=== PATIENT | female | born 1985 | race Two or more races ===

== ENCOUNTER 2016-12-17 13:06 | Emergency (ER) | payer MEDICAID ==
[2016-12-17] MEDS ORDERED: OXYCODONE-ACETAMINOPHEN 5-325 MG TABLET PO ONE (13:59)
[2016-12-17] MEDS ORDERED: DIPH/PERTUSS(ACELL)/TETANUS VAC/PF 0.5 ML SYR (>=10YO) IM ONE (13:59)
--- NOTE | 2016-12-17 14:00 | ER Document Report ---
ED Medical Screen (RME) - General Chief Complaint: Laceration Stated Complaint: LACERATION ON RIGHT HAND Time Seen by Provider: 12/17/16 13:59 - HPI Patient complains to provider of: Right fifth finger laceration Onset: Just prior to arrival Onset/Duration: Sudden Quality of pain: Achy Severity: Moderate Pain Level: 3 Associated Symptoms: None Exacerbated by: Movement Relieved by: Denies Similar symptoms previously: No Recently seen / treated by doctor: No Notes: 12/17/16 13:59 Patient is a 31-year-old female who presents to the emergency room complaining of laceration to the right fifth finger that occurred just prior to arrival, states she cut it on a broken piece of mirror, last tetanus shot is unknown, she denies any numbness or tingling to the distal extremity, the laceration is on the palmar surface over the PIP - Related Data Allergies/Adverse Reactions: No Known Allergies Allergy (Unverified 12/17/16 13:20) Past Medical History Renal/ Medical History: Denies: Hx Peritoneal Dialysis Surgical Hx: Negative Physical Exam - Vital signs Vitals: Temp Pulse Resp BP Pulse Ox 98.6 F 78 16 131/79 H 96 12/17/16 13:20 12/17/16 13:20 12/17/16 13:20 12/17/16 13:20 12/17/16 13:20 Course - Vital Signs Vital signs: Temp Pulse Resp BP Pulse Ox 98.6 F 78 16 131/79 H 96 12/17/16 13:20 12/17/16 13:20 12/17/16 13:20 12/17/16 13:20 12/17/16 13:20
[2016-12-17] MEDS ORDERED: LIDOCAINE 1% INJ (10 MG/ML) 10 ML MDV INJ ONE (14:37)
[2016-12-17] MEDS ORDERED: LIDOCAINE 1% INJ-PF (10 MG/ML) 30 ML SDV ONE (14:44)
--- NOTE | 2016-12-17 15:16 | RADIOLOGY REPORT (SQ) ---
EXAM DESCRIPTION: FINGER RIGHT COMPLETED DATE/TIME: 12/17/2016 2:39 pm REASON FOR STUDY: LACERATION RT5 MID COMPARISON: None. NUMBER OF VIEWS: Three views. TECHNIQUE: AP, lateral, and oblique images acquired of the right 5th finger LIMITATIONS: None. FINDINGS: MINERALIZATION: Normal. BONES: There is a large bandage on the 5th finger. No osseous abnormality is seen. SOFT TISSUES: No soft tissue swelling. No foreign body. OTHER: No other significant finding. IMPRESSION: NO RADIOGRAPHIC EVIDENCE OF ACUTE INJURY. COMMENT: SITE OF TRAUMA/COMPLAINT MARKED/STAMP COMPLETED: Yes TECHNICAL DOCUMENTATION: JOB ID: [id number] [employer]- All Rights Reserved
--- NOTE | 2016-12-17 16:27 | ER Document Report ---
ED General - General Chief Complaint: Laceration Stated Complaint: LACERATION ON RIGHT HAND Time Seen by Provider: 12/17/16 13:59 Information source: Patient, Relative - HPI Onset: Just prior to arrival Onset/Duration: Sudden - This is a 31-year-old female who presented to the emergency room today stating that the bathroom mirror went to fall on her and she put her hands up to catch at the mirror broke lacerating her volar aspect of her fifth metacarpal at the PIP - Related Data Allergies/Adverse Reactions: No Known Allergies Allergy (Unverified 12/17/16 13:20) Past Medical History - General Information source: Patient - Social History Smoking Status: Never Smoker Cigarette use (# per day): No Chew tobacco use (# tins/day): No Smoking Education Provided: No Drug Abuse: None Family History: None Patient has suicidal ideation: No Patient has homicidal ideation: No Renal/ Medical History: Denies: Hx Peritoneal Dialysis Surgical Hx: Negative Review of Systems - Review of Systems Constitutional: No symptoms reported EENT: No symptoms reported Cardiovascular: No symptoms reported Respiratory: No symptoms reported Gastrointestinal: No symptoms reported Genitourinary: No symptoms reported Female Genitourinary: No symptoms reported Musculoskeletal: No symptoms reported Skin: No symptoms reported Hematologic/Lymphatic: No symptoms reported Neurological/Psychological: No symptoms reported Physical Exam - Vital signs Vitals: Temp Pulse Resp BP Pulse Ox 98.6 F 78 16 131/79 H 96 12/17/16 13:20 12/17/16 13:20 12/17/16 13:20 12/17/16 13:20 12/17/16 13:20 Interpretation: Normal - General General appearance: Appears well, Alert - HEENT Head: Normocephalic, Atraumatic Eyes: Normal Pupils: PERRL - Respiratory Respiratory status: No respiratory distress Chest status: Nontender Breath sounds: Normal Chest palpation: Normal - Cardiovascular Rhythm: Regular Heart sounds: Normal auscultation Murmur: No - Abdominal Inspection: Normal Distension: No distension Bowel sounds: Normal Tenderness: Nontender Organomegaly: No organomegaly - Back Back: Normal, Nontender - Extremities General upper extremity: Normal inspection, Nontender, Normal color, Normal ROM , Normal temperature General lower extremity: Normal inspection, Nontender, Normal color, Normal ROM , Normal temperature, Normal weight bearing. No: Ashtyn's sign Hand: Other - Fifth metatarsal has a laceration on the volar surface of the PIP. Neurovascularly intact distal to the affected area. Rapid capillary refill. - Neurological Neuro grossly intact: Yes Cognition: Normal Orientation: AAOx4 Jayce Coma Scale Eye Opening: Spontaneous Cropsey Coma Scale Verbal: Oriented Cropsey Coma Scale Motor: Obeys Commands Cropsey Coma Scale Total: 15 Speech: Normal Motor strength normal: LUE, RUE, LLE, RLE Sensory: Normal - Psychological Associated symptoms: Normal affect, Normal mood - Skin Skin Temperature: Warm Skin Moisture: Dry Skin Color: Normal Course - Vital Signs Vital signs: Temp Pulse Resp BP Pulse Ox 98.6 F 78 16 131/79 H 96 12/17/16 13:20 12/17/16 13:20 12/17/16 13:20 12/17/16 13:20 12/17/16 13:20 Procedures - Laceration/Wound Repair Right Proximal Finger Wound length (cm): 3 Wound's Depth, Shape: Superficial Anesthetic type: 1% Lidocaine Wound explored: Clean Wound Debrided: Moderate Wound Repaired With: Sutures Suture Size/Type: 4:0, Nylon Number of Sutures: 2 Layer Closure?: No Post-procedure wound care: Other - Patient tolerated the 2 sutures poorly felt as though she still had sensation after digital block with a total of 6 cc of 1 % lidocaine to that extremity. The 2 sutures were placed Steri-Strips were applied over the wound. At the patient's request the patient did ask me to stop. Neurovascularly intact after the procedure being the patient had a long conversation regarding the potential for infection and the wounds have a very distinguished scar at that location. Discharge - Discharge Condition: Good Disposition: HOME, SELF-CARE Instructions: Laceration Care (OM), Soap Cleansing (OM), Tetanus Immunization Given ([facility]) Additional Instructions: Laceration Care Your laceration has been sutured to keep the skin edges aligned during healing. The time of suture removal depends on the nature and location of your cut. Please follow the care instructions the doctor has outlined for you and return for further care, according to the schedule you've been given. Keep the wound and dressing clean. Unless you were told otherwise, you may shower daily, blotting the wound dry with a clean, unused towel. At other times, If the dressing gets wet or blood soaked, remove it and blot the wound dry, then reapply a new dressing. Unless you were instructed otherwise, dressings should be changed at least daily. If any signs of infection occur (swelling, redness, increasing tenderness, red streaks, tender lumps in the armpit or groin above the laceration, or fever) , see the doctor immediately. Prescriptions: Tramadol HCl [Ultram 50 mg Tablet] 50 mg PO Q4HP PRN #60 tab PRN Reason:
[2016-12-17 17:00] VITALS: BP 123/77
== END 2016-12-17 17:04 | disposition home or self-care (01) ==
LOC: ER 13:06
PROC: 0HQFXZZ Repair Right Hand Skin, External Approach (ICD-10-PCS; principal; 2016-12-17)
DX: S61.411A Laceration without foreign body of right hand, initial encounter (principal); W19.XXXA Unspecified fall, initial encounter
CPT/HCPCS: 99283; 90471; 73140; 90715; 12002; J3490

== ENCOUNTER 2017-05-11 05:20 | Day surgery (SDC) | payer MEDICAID ==
[2017-05-02 10:50] LABS: HEMATOCRIT 38.4 % (36.0-47.0); HEMOGLOBIN 13.1 g/dL (12.0-15.5); HGB HCT DIFFERENCE 0.9; MEAN CORPUSCULAR HEMOGLOBIN 31.3 pg (27.0-33.4); MEAN CORPUSCULAR VOLUME 92 fl (80-97); RED BLOOD COUNT 4.17 10^6/uL (3.72-5.28); RED CELL DISTRIBUTION WIDTH 12.8 % (11.5-14.0); WHITE BLOOD COUNT 6.3 10^3/uL (4.0-10.5)
[~2017-05-11 05:20] MED LIST: CEFAZOLIN 1 GM/D5W RTU 1 GM/50 ML RTUPB IV PRN; LACTATED RINGERS 1000 ML IV PRN; LIDOCAINE 0.5% INJ-PF (5 MG/ML) 50 ML SDV SUBCUT PRN
[2017-05-11] MEDS ORDERED: FENTANYL CITRATE INJ/PF 100 MCG/2 ML AMPUL ONE (07:08)
[2017-05-11] MEDS ORDERED: MIDAZOLAM 2 MG/2 ML INJ ONE (07:08)
[2017-05-11] MEDS ORDERED: PROPOFOL INJ 200 MG/20 ML VIAL IV ONE (07:09)
[2017-05-11] MEDS ORDERED: LIDOCAINE 1% INJ-PF (10 MG/ML) 30 ML SDV ONE (07:12)
[2017-05-11] MEDS ORDERED: PROMETHAZINE HCL INJ 25 MG/1 ML VIAL IV PRN ×2 (07:41)
[2017-05-11] MEDS ORDERED: OXYCODONE-ACETAMINOPHEN 5-325 MG TABLET PO PRN ×3 (07:41→08:05)
[2017-05-11] MEDS ORDERED: FENTANYL CITRATE INJ/PF 100 MCG/2 ML AMPUL IV PRN ×3 (07:41)
[2017-05-11] MEDS ORDERED: DIPHENHYDRAMINE HCL 50 MG/ML VIAL IV PRN (07:41)
[2017-05-11] MEDS ORDERED: MEPERIDINE HCL/PF INJ 25 MG/1 ML DISP.SYRIN IV PRN (07:41)
[2017-05-11] MEDS ORDERED: MORPHINE SULFATE 10 MG/ML INJ IV PRN (07:41)
--- NOTE | 2017-05-11 08:04 | PDOC DISCHARGE SUMMARY ---
Discharge Summary (SDC) - Discharge Final Diagnosis: Left foreign body Date of Surgery: 05/11/17 Discharge Date: 05/11/17 Condition: Stable Treatment or Instructions: Wound care: - Leave steri strips (paper bandaids) intact until follow up appointment. You may shower and get the area wet in two days. Do not scrub area. Pat dry after shower. If you feel more comfortable, you may cover the area with gauze and tape. - Tylenol or Ibuprofen/Motrin for pain. - Follow up appointment in two weeks with Diane Marcelo PA-C at [facility]. [facility]: [phone] Call clinic sooner with any questions/concerns Referrals: ANKIT HOLCOMB MD [Primary Care Provider] - Discharge Diet: As Tolerated Discharge Activity: Activity As Tolerated Report the Following to Your Physician Immediately: Fever over 101 Degrees, Unusual Bleeding, Redness, Swelling, Warmth, Drainage-Foul Smelling
[2017-05-11] MEDS ORDERED: ONDANSETRON HCL INJ/PF 4 MG/2 ML SDV IV PRN (08:06)
--- NOTE | 2017-05-11 08:07 | Operative Report ---
Operative Report DATE OF SURGERY: 05/11/17 PREOPERATIVE DIAGNOSIS: Retained foreign body consistent with Nexplanon POSTOPERATIVE DIAGNOSIS: Same OPERATION: 1. Focused ultrasound left upper extremity. 2. Ultrasound directed operative removal of left upper extremity foreign body consistent with Nexplanon SURGEON: COLTEN BRAGA SPIRAL SPRING WINDER: FABRICIO MAY ANESTHESIA: LMAC TISSUE REMOVED OR ALTERED: Foreign body left arm COMPLICATIONS: None ESTIMATED BLOOD LOSS: Scant INTRAOPERATIVE FINDINGS: See below PROCEDURE: She was taken to the preop holding operating room where LMAC anesthesia was induced. Left arm was isolated, prepped and draped in sterile fashion with exposure to the medial aspect of the left upper arm. Surgical plan surgical timeout were conducted. Focused ultrasound left upper extremity confirmed a approximately 2 inch long thin body, running 2 nearly adjacent to the biceps groove. Findings are consistent with retained foreign body Skin was anesthetized with 1% lidocaine plain. A small incision was made in the skin with a 15 blade. Gentle manipulation, and hemostat dissection were used to dislodge the body from the subcutaneous tissue. The foreign body was removed in its entirety. Sent to pathology. Wound closed with 3-0 Ethilon suture. Steri-Strips applied. Postop procedure well, taken recovery in stable condition. The physician imaging assistant, Ms. Donaldson, provided assistance during this case by: Assisting retracting tissue, instillation of local anesthesia and closure of skin incision.
[2017-05-11 09:30] VITALS: BP 10/68
== END 2017-05-11 09:30 | disposition home or self-care (01) ==
LOC: OROUT 05:20
PROVIDERS: ATTEND Surgery
PROC: 0JPV0HZ Removal of Contraceptive Device from Upper Extremity Subcutaneous Tissue and Fascia, Open Approach (ICD-10-PCS; principal; 2017-05-11 07:30)
DX: Z30.49 Encounter for surveillance of other contraceptives (principal); Z79.899 Other long term (current) drug therapy
CPT/HCPCS: 11982; 36415; 85027; 81025; J2250; J0690; J3010; J3490; J2704; 400

== ENCOUNTER → 2018-09-06 | Outpatient (CLI) | payer MEDICAID ==
--- NOTE | 2018-09-06 15:57 | RADIOLOGY REPORT (SQ) ---
EXAM DESCRIPTION: U/S NON-OB PELVIS TV W/O DOP COMPLETED DATE/TIME: 09/06/2018 3:46 pm REASON FOR STUDY: R10.2 PELVIC AND PERINEAL PAIN R10.2 PELVIC AND PERINEAL PAIN COMPARISON: None. TECHNIQUE: Dynamic and static grayscale images acquired of the pelvis via transvaginal approach and recorded on PACS. Additional selected color Doppler and spectral images recorded. LIMITATIONS: None. FINDINGS: UTERUS: Contour normal. No mass. Uterus is 11 x 6 x 4 cm in size ENDOMETRIAL STRIPE: No focal or generalized thickening. No masses. Endometrial stripe 1.8 mm in thic kness. CERVIX: No nabothian cysts. Closed, 2.3 cm in length. RIGHT OVARY AND DOPPLER: Post oophorectomy in 2013. No right adnexal fluid. LEFT OVARY AND DOPPLER: Normal size, 4.1 x 2.5 x 1.6 cm in size. No worrisome masses. Normal arterial vascular flow without evidence for torsion. FREE FLUID: None noted. OTHER: No other significant finding. IMPRESSION: POST RIGHT OOPHORECTOMY. OTHERWISE, UNREMARKABLE TRANSVAGINAL PELVIC ULTRASOUND. TECHNICAL DOCUMENTATION: JOB ID: [id number] [employer]- All Rights Reserved Rev Reading location - IP/workstation name: [email or web address]
== END ==
LOC: RAD 16:36
PROVIDERS: ATTEND Family Medicine
DX: R10.2 Pelvic and perineal pain (principal)
CPT/HCPCS: 76830

== ENCOUNTER → 2019-03-26 | Outpatient (CLI) | payer MEDICAID ==
--- NOTE | 2019-03-26 10:21 | RADIOLOGY REPORT (SQ) ---
EXAM DESCRIPTION: SHOULDER RIGHT 2 OR MORE VIEWS COMPLETED DATE/TIME: 03/26/2019 10:08 am REASON FOR STUDY: M25.511 ACUTE PAIN RT SHOULDER, no trauma no injury COMPARISON: None. NUMBER OF VIEWS: Three views. TECHNIQUE: Internal rotation, external rotation, and Y view images acquired of the right shoulder. LIMITATIONS: None. FINDINGS: MINERALIZATION: Normal. BONES: No acute fracture. No worrisome bone lesions. No significant osteophytes. GLENOHUMERAL JOINT: No significant findings. ACROMIOCLAVICULAR JOINT: No large osteophytes. SOFT TISSUES: No calcifications. VISUALIZED RIBS, SPINE, AND LUNG: No other significant finding. OTHER: No other significant finding. IMPRESSION: NEGATIVE STUDY OF THE RIGHT SHOULDER. NO RADIOGRAPHIC EVIDENCE OF ACUTE INJURY. NO EXPLA NATION FOR PAIN. TECHNICAL DOCUMENTATION: JOB ID: [id number] [employer]- All Rights Reserved Reading location - IP/workstation name: [email or web address]
== END ==
LOC: RAD 09:12
PROVIDERS: ATTEND Nurse Practitioner Family
DX: M25.551 Pain in right hip (principal)